=== PATIENT | female | born 1990 | race Caucasian/White ===

== ENCOUNTER → 2016-07-04 13:05 | Observation (INO) ==
[2016-07-04 11:42] LABS: Bilirubin,Urine Negative (Negative); Blood,Urine Negative (Negative); Clarity,Urine Cloudy (Clear); Color,Urine Yellow (Yellow); Glucose,Urine (UA) Normal (Normal); Ketones,Urine Negative (Negative); Leukocyte Esterase,Urine Trace (Negative); Nitrite,Urine Negative (Negative); PH,Urine 6.5 pH Units (5.0-8.0); Protein,Urine Negative (Neg-Trace); Specific Gravity,Urine 1.011 (1.010-1.025); Urobilinogen,Urine Normal (Normal)
[2016-07-04 11:43] LABS: Bacteria,Urine Few per hpf (None-Few); Hyaline Casts,Urine None Seen per lpf (None-Few); Squamous Epithelial Cell,Urine Many per lpf (None-Few)
--- NOTE | 2016-07-04 11:44 | OB/GYN Progress Note ---
Date of Encounter: 07/04/16 Time of Encounter: 11:42 - Assessment and Plan (1) 34 weeks gestation of Current Visit: Yes Status: Acute SVE closed. SSE negative for amniotic fluid. UA with trace leukocytes. Discharge home with precautions. Follow-up on Sunday as scheduled. (2) Abdominal pain affecting , antepartum Current Visit: Yes Status: Acute Subjective - Subjective Interval history: 25 year-old at 34w5d presenting with c/o leaking fluid at 0940 this am. She reports several small gushes of clear fluid. No sx vaginal infection or UTI. Good FM. No VB. She does admit to some mild cramping. Antepartum ROS: loss of fluid, movement normal, no vaginal bleeding, no contractions Objective - Exam FHR: category 1 FHR comments: NST reactive Auscultation: bilateral: normal Abdomen: Present: soft, gravid. Absent: tenderness Uterus: Absent: tenderness Cervical dilation: closed Cervix effacement: thick station: high Comments: SSE negative pool, negative nitrazine, negative fern.
[2016-07-04 11:57] LABS: RBC,Urine 0-3 per hpf (0-3)
[2016-07-04 14:18] LABS: Gardnerella DNA ***DETECTED*** (Not Detect); Trichomonas DNA Not Detected (Not Detect)
[2016-07-04 14:19] LABS: Candida DNA Not Detected (Not Detect)
== END | disposition home or self-care (01) ==
LOC: 1NENULAB
PROVIDERS: ADMIT Obstetrics & Gynecology; ATTEND Obstetrics & Gynecology

== ENCOUNTER 2016-08-03 14:16 | Inpatient (IN) ==
[2016-08-03] MEDS ORDERED: Famotidine 20 MG/2 ML VIAL IVP PRN (14:35)
[2016-08-03] MEDS ORDERED: Ondansetron 4 MG/2 ML VIAL IVP PRN ×2 (14:35→16:22)
[2016-08-03] MEDS ORDERED: Naloxone 0.4 MG/ML INJ IVP PRN ×2 (14:35→16:22)
[2016-08-03] MEDS ORDERED: miSOPROStol 25 MCG TABLET PO PRN (14:38)
[2016-08-03] MEDS ORDERED: *HR* Nalbuphine 20 MG/ML AMPUL IVP PRN (14:38)
[2016-08-03] MEDS ORDERED: Ringers Solution, Lactated 1,000 ML IVC SCH (14:45)
[2016-08-03 15:21] LABS: Basophils % 0.3 %; Eosinophils % 0.7 %; Hematocrit 33.7 % (35.3-44.9); Hemoglobin 11.6 g/dL (11.5-15.4); Immature Granulocytes % 0.3 % (0-4); Lymphocytes # 1.4 K/mcL (0.6-4.6); Mean Corpuscular HGB Conc 34.4 g/dL (31.6-35.5); Mean Corpuscular Hemoglobin 31.4 pg (28.0-33.3); Mean Corpuscular Volume 91.3 fL (83.0-100.0); Mean Platelet Volume 13.3 fL (9.4-12.4); Monocytes # 0.4 K/mcL (0.0-1.3); Monocytes % 5.7 %; Neutrophils # 4.3 K/mcL (1.6-8.9); Platelet Count 109 K/mcL (140-400); Red Blood Count 3.69 M/mcL (3.82-4.97); Red Cell Distribution Width 12.8 % (11.5-14.5)
--- NOTE | 2016-08-03 15:38 | OB/GYN History & Physical ---
Date of Encounter: 08/03/16 Time of Encounter: 15:35 Assessment and Plan (1) 39 weeks gestation of Current visit: Yes Status: Acute Admit for elective IOL. CYtotec 50mcg PO now. Tiwari catheter placed in cervix using sterile technique. Balloon inflated with 30ml sterile water. Pt tolerated well. Epidural when requested. AROM when able. Anticipate . History of Present Illness Chief complaint: IOL HPI: Ms. Cruz is a 25 year old female presenting at 39 weeks gestation for elective IOL. This has been uncomplicated. Good FM and no complaints today. A negative, antibody screen negative Rubella Immune Hep B negative RPR negative HIV negative Chicken pox as child GBS negative. Past Med Surg Social Fam HX - Past Medical History Medical history: no medical history Psychiatric history: no psych history - Past Surgical History Surgical History: no surgical history - Social History Smoking Status: Never smoker Alcohol use: none Drug use: none - Family History Father Adopted: [place]: Suresh Living Status: Still Living Hx Family Cardiac Disorders: No Hx Family Respiratory Disorders: No Hx Family Cancer: No Hx Family GI Disorders: No Hx Family Genitourinary Disorders: No Hx Family Endocrine Disorder: No Hx Family Musculoskeletal Disorders: No Hx Family Neuromuscular Disorders: No Hx Family Neurologic Disorders: No Hx Family HEENT Disorders: No Hx Family Autoimmune Disorders: No Hx Family Reproductive Disorders: No Hx Family Psychosocial Disorders: No Hx Family Medical Disorders: No Obstetrical History - Pregnancies : 3 Para: 1 Ab's: 1 Livin Medications and Allergies Caplet 1 tab PO DAILY 07/04/16 [History] Allergies No Known Allergies Allergy (Verified 07/04/16 11:44) Review of System OB All systems PM: reviewed and no additional remarkable complaints except as stated Exam - Constitutional Constitutional: well developed, well nourished, no acute distress - Lungs Respiratory exam: CTAB - Cardiovascular Cardiovascular exam: RRR, +S1, +S2 - Abdomen Abdomen: Present: gravid, non tender (EFW 8lbs by pia) - Extremities Extremities exam: normal inspection - Vulva Vulva: bilateral: normal - Vagina Vagina: Present: normal moisture - Cervix Dilation: 2 Effacement: 80 Station: -1 - Uterus Uterus exam: Present: normal size - Anus/Rectum Anus/Rectum: Present: normal perianal skin Results Result Diagrams: 08/03/16 15:00 Abnormal lab results RBC 3.69 M/mcL (3.82-4.97) L 08/03/16 15:00 Hct 33.7 % (35.3-44.9) L 08/03/16 15:00 Plt Count 109 K/mcL (140-400) L 08/03/16 15:00 MPV 13.3 fL (9.4-12.4) H 08/03/16 15:00 All other labs normal. - VTE Reasons for not Prescribing Prophylaxis: Treatment not Indicated - Low risk for VTE
[2016-08-03] MEDS ORDERED: *HR* FentaNYL (PF) 100 MCG/2 ML VIAL EP ONE (16:22)
[2016-08-03] MEDS ORDERED: Bupivacaine-MPF 0.25% 10 ML VIAL EP ONE (16:22)
[2016-08-03] MEDS ORDERED: EPHEDrine 50 MG/ML VIAL IVP PRN (16:22)
--- NOTE | 2016-08-03 16:26 | Anesthesia Evaluation PreOp ---
Date of Encounter: 08/03/16 Time of Encounter: 16:24 - Past History Planned Operation: SELENA/csection Cardiac History: Denies any Significant Hx Pulmonary History: Denies Any Significant HX WORM RAISER History: Denies Any Significant HX Other Medical History: GERD Anesthesia History: No Prior Anesthetic Complications, Past Anesthesia ( tonsillectomy) : Yes Alcohol Use: none Drug use: none Medications and Allergies Caplet 1 tab PO DAILY 07/04/16 [History] Allergies No Known Allergies Allergy (Verified 07/04/16 11:44) - Meds/Allergy Pre-op Review Medications Reviewed: Yes Allergies Reviewed: Yes Beta Blockers on Current Med List: No Anesthesia Results - Labs 08/03/16 15:00 Anesthesia Exam BP 113/56 P 118 R 16 T 98.6 Height: 5'1" Weight: 81.8kg NPO (# of Hours): 2 Pain Scale: 2 (with contractions) Pain Scale Used: Numeric (1 - 10) - HEENT Pupil (Motor): Pupils equal Mallampati: II Teeth: Normal Oral Opening: Greater than 3 - WORM RAISER LOC: Oriented WORM RAISER Motor: Normal RUE, Normal LUE, Normal RLE, Normal LLE, Normal Face WORM RAISER Sensory: Normal: RUE, LUE, RLE, LLE, Face - Cardiac Rhythm: Regular Murmur: None JVD: No Carotid Bruit: No - Pulmonary Breath Sounds: bilateral Clear Respiratory Effort: Symmetrical Anesthesia Assess/Plan ASA Score: 2 Modified Carmen Scale for Level of Consciousness: Cooperative, oriented, and tranquil Anesthetic Plan: Regional Autologous Blood: No Monitoring Plan: Standard Monitors Recovery Plan: Other
[2016-08-03] MEDS ORDERED: Epidural Premix (fent/bupiv) 110 ML EP SCH (16:30)
--- NOTE | 2016-08-03 16:43 | OB Labor Progress Note ---
Date of Encounter: 08/03/16 Time of Encounter: 16:41 Labor Progress Note - Subjective Subjective: Patient breathing with contractions. Discussed POC with patient. Patient denies any questions or concerns. - Cervix Cervix: 5/90/-1 - Heart Tones Heart Tones: 145 bpm moderate amount of variability +15x15 accels no decels noted. Cat 1 tracing. - [place]: 2-3 min apart - Interventions Interventions: SVE, AROM moderate amount of clear fluid noted. Pericare provided. - Plan Plan: Continue labor management. Patient may have Nubain and epidural for pain management if desires.
[2016-08-03] MEDS ORDERED: *HR* FentaNYL (PF) 100 MCG/2 ML VIAL ONE ×2 (16:52→21:33)
[2016-08-03] MEDS ORDERED: Bupivacaine-MPF 0.25% 10 ML VIAL ONE (16:52)
[2016-08-03] MEDS ORDERED: Epidural Premix (fent/bupiv) 110 ML EP ONE (16:53)
--- NOTE | 2016-08-03 18:27 | Anesthesia Procedures ---
Date of Encounter: 08/03/16 Time of Encounter: 17:26 Procedures: Anesthesia - Epidural/Spinal Patient ID/Chart reviewed: Yes Patient examined: Yes OB Eval: Gestational age: 39 OB Eval: : 2 OB Eval: Hx Para: 1 OB Eval: Dilated at (cm): 5 OB Eval: Contractions: Non-stressed pattern Consent Obtained: Yes Supplemental Oxygen: None/Room Air Site Prep: Aseptic Technique, Sterile prep and drape, Povidone-Iodine 1% Patient position: upright Local Anesthetic: Lidocaine 1% Amount of Local Anesthetic used: 3 Touhy Needle Gauge: 18 Touhy Needle Depth (cm): 6 Catheter Depth at Skin (cm): 15 Test Dose (1.5% Lido + Epi): Volume given (mls): 3 Test Dose Result: Negative Loading Dose: 0.25% Marcaine (mls): 10 Loading Dose: Fentanyl (mcg): 100 Loading Dose Administered: Thru Catheter Infusion Med: 0.125% Bupivacaine w/ 2 mcg/ml Fentanyl Infusion Rate (mls/hr): [address]: Tegaderm, Tape Interspace Used: L4-L5 Loss of Resistance (JOSÉ MIGUEL): Yes Blood: No CSF: No Paresthesia: No Procedure: SELENA placed in upright position 1st pass without any immediate noted complications. VSS and FHT stable throughout. Vitals + FHT's: 1726 BP 122/83 P 81 R16 1746 BP 125/70 R 16 P 117 FHT 130s
--- NOTE | 2016-08-03 19:16 | OB Labor Progress Note ---
Date of Encounter: 08/03/16 Time of Encounter: 19:14 Labor Progress Note - Subjective Subjective: Patient resting in bed with epidural in place. Patient denies any pain at this time. Discussed POC with patient. Patient denies any questions or concerns. - Cervix Cervix: 6.5/90/-1 - Heart Tones Heart Tones: 130 bpm moderate variability +15x15 accels no decels noted. Cat. 1 tracing. - [place]: 2-3 min apart - Interventions Interventions: SVE, IUPC placed without difficulty. Patient tolerated well. - Plan Plan: Continue labor management.
[2016-08-03] MEDS ORDERED: Oxytocin 20 units/ LR 1000 mL 20 UNIT/1,000 ML BAG IVC ONE ×3 (21:34→23:20)
--- NOTE | 2016-08-03 22:30 | OB/GYN Procedure Note ---
Delivery - Delivery Date: 08/03/16 Provider: [facility] Delivery induction: AROM, misoprostol Delivery monitor: external FHT, external uterine, internal uterine Anesthesia: local, epidural Estimated Blood Loss: 200 - Infant (s) Infant A Delivery Date: 08/03/16 Delivery Time: 21:58 Presentation: vertex Position: SANDY Gender: Female Viability: Viable Pounds: 8 Ounces: 4 Weight Gram: 3.745 kg at 1 minute: 7 at 5 mins: 9 Shoulder Dystocia: encountered Shoulder Dystocia Maneuvers: Juan Pablo maneuver, suprapubic pressure Shoulder dystocia time elapsed: 24 Specimens collected: cord blood Placenta: spontaneous, uterine exploration Cord: nuchal cord (x1), 3 umbilical vessels, nuchal reduced - Repair Episiotomy: none Laceration Description: Perineal - 1st Degree (repaired with 3-0 vicryl.) - Complications Delivery complications: none Delivery comments: Called to LDR, patient feeling pain after epidural bolus. Patient was dilated 10cm. Patient placed in stirrups and prepped for delivery. Patient began pushing with contractions delivery of head with nuchal x1 that was reduced. A Shoulder dystocia was encountered, Juan Pablo and suprapubic pressure was applied. Delivery of followed suprapubic pressure. Dystocia was approximately 24 seconds. was placed on Maternal abdomen cord was clamped and cut immediately. Infant was taken to the warm and began crying with stimulation. No other interventions were required. Placenta delivered however a piece of membrane remained and was manually removed. Patient had a 1st degree vaginal laceration. 1% lidocaine was used to anesthetize the laceration and was repaired with 3-0 vicryl. No meconium was encountered. was returned to mother for skin to skin. Both mother and infant are stable in recovery. - Disposition Mom disposition: stable in LDR Jal disposition: stable in LDR
--- NOTE | 2016-08-03 23:03 | Anesthesia Progress Note ---
Date of Encounter: 08/03/16 Time of Encounter: 21:40 Anesthesia Note - Note Note: 08/03/16 22:56 Called for increased patient discomfort with previously working epidural. Pt complains of pain in groin area. Level Check T6 level. Pt dilation checked to show complete dilation. Manual bolus given Sensorcaine 0.5% 8ml with Fentanyl 100mcg in hopes to increase patient comfort for delivery. VSS with bolus and subsequent delivery of baby girl. 08/03/16 23:04 Reason for Cancellation: Other
[2016-08-03] MEDS ORDERED: *HR* HYDROcodone/Acet 5/325 mg TABLET PO PRN (23:20)
[2016-08-03] MEDS ORDERED: Benzocaine/Menthol 56 GM AEROSOL SPRAY TP PRN (23:20)
[2016-08-03] MEDS ORDERED: Measles/Mumps/Rubella Vacc 0.5 ML VIAL SQ PRN (23:20)
[2016-08-03] MEDS ORDERED: Oxytocin 20 units/ LR 1000 mL 20 UNIT/1,000 ML BAG IV SCH (23:20)
[2016-08-03] MEDS ORDERED: Rho Immune Globulin 1,500 UNIT SYRINGE IM PRN (23:20)
[2016-08-03] MEDS ORDERED: Acetaminophen 325 MG TABLET PO PRN (23:20)
[2016-08-03] MEDS ORDERED: Lanolin 7 G OINT...G. TP PRN (23:20)
[2016-08-04 04:27] LABS: Basophils % 0.2 %
[2016-08-04 04:29] LABS: Eosinophils % 0.1 %; Hematocrit 31.5 % (35.3-44.9); Hemoglobin 10.8 g/dL (11.5-15.4); Immature Granulocytes % 0.6 % (0-4); Immature Platelets 18.3 % (1.1-6.1); Lymphocytes # 1.9 K/mcL (0.6-4.6); Lymphocytes % 16.5 %; Mean Corpuscular HGB Conc 34.3 g/dL (31.6-35.5); Mean Corpuscular Hemoglobin 31.7 pg (28.0-33.3); Mean Corpuscular Volume 92.4 fL (83.0-100.0); Mean Platelet Volume 13.6 fL (9.4-12.4); Monocytes # 0.6 K/mcL (0.0-1.3); Monocytes % 5.2 %; Neutrophils # 8.9 K/mcL (1.6-8.9); Platelet Count 93 K/mcL (140-400); Red Blood Count 3.41 M/mcL (3.82-4.97); Red Cell Distribution Width 12.8 % (11.5-14.5); Segmented Neutrophils % 77.4 %
[2016-08-04] MEDS: Ibuprofen 600 MG TABLET PO PRN ×3 (08:30→18:03)
[2016-08-04] MEDS ORDERED: Prenatal Vit/FA 1 EACH TABLET PO SCH (09:00)
--- NOTE | 2016-08-04 10:51 | OB/GYN Progress Note ---
Date of Encounter: 08/04/16 Time of Encounter: 10:47 - Assessment and Plan (1) 39 weeks gestation of Current Visit: Yes Status: Acute Admit for elective IOL. CYtotec 50mcg PO now. Tiwari catheter placed in cervix using sterile technique. Balloon inflated with 30ml sterile water. Pt tolerated well. Epidural when requested. AROM when able. Anticipate . Subjective - Subjective Patient reports: appetite normal, voiding normally, pain well controlled, ambulating normally Objective - Latest Vital Signs Latest vital signs: Vital Signs Temp Pulse Resp BP Pulse Ox 08/04/16 07:55 97 F L 71 16 99/66 97 08/04/16 02:35 98.1 F 73 14 108/66 97 Intake and Output 08/03/16 08/04/16 08/04/16 23:59 07:59 15:59 Intake Total 300 / 300 Output Total 1100 / 1100 500 / 500 Balance -800 / -800 -500 / -500 Intake: Oral 300 / 300 Output: Urine 1100 / 1100 500 / 500 Other: Stool Characteristics Normal for Patient Normal for Patient Weight 79 kg Patient Weight 08/04/16 23:59 Weight 79 kg - Labs Labs: Laboratory Results - last 24 hr 08/03/16 08/03/16 08/04/16 15:00 22:36 04:02 WBC 6.1 11.5 H D RBC 3.69 L 3.41 L Hgb 11.6 10.8 L Hct 33.7 L 31.5 L MCV 91.3 92.4 MCH 31.4 31.7 MCHC 34.4 34.3 RDW 12.8 12.8 Plt Count 109 L 93 L MPV 13.3 H 13.6 H Immature Gran % 0.3 0.6 Seg Neutrophils % 70.0 77.4 Lymphocytes % 23.0 16.5 Monocytes % 5.7 5.2 Eosinophils % 0.7 0.1 Basophils % 0.3 0.2 Neutrophils # 4.3 8.9 Lymphocytes # 1.4 1.9 Monocytes # 0.4 0.6 Eosinophils # 0.0 0.0 Basophils # 0.0 0.0 Immature Plt Fraction 18.3 H Baby's Blood Type O RH NEGATIVE Mother's Blood Type A RH NEGATIVE Rhogam Indicated NO
--- NOTE | 2016-08-04 10:54 | Discharge Summary ---
Date of Encounter: 08/04/16 Time of Encounter: 10:51 - Discharge Diagnosis (1) (normal spontaneous vaginal delivery) Priority: Primary Status: Acute Comments: Pt meeting milestones. (2) Encounter for care or examination of lactating mother Priority: Secondary Status: Acute - Discharge Medications Prescriptions: Ibuprofen [Motrin] 600 mg PO Q6HR PRN #60 tablet PRN Reason: Cramping Docusate [Colace] 100 mg PO BID #60 capsule Home Medications: Caplet 1 tab PO DAILY 07/04/16 [History] Benzocaine/Menthol [place] [Dermoplast [place]] 1 appl TP QID PRN #0 aerosol [Rx] Docusate [Colace] 100 mg PO BID #60 capsule 08/04/16 [Rx] Ibuprofen [Motrin] 600 mg PO Q6HR PRN #60 tablet 08/04/16 [Rx] Lanolin [Lansinoh] 1 appl TP TID PRN #0 oint...g. 08/04/16 [Rx] Allergies/Adverse Reactions: Allergies No Known Allergies Allergy (Verified 07/04/16 11:44) Data Procedures and tests throughout hospitalization: Laboratory Tests 08/03/16 08/03/16 08/04/16 15:00 22:36 04:02 WBC 6.1 11.5 H D RBC 3.69 L 3.41 L Hgb 11.6 10.8 L Hct 33.7 L 31.5 L MCV 91.3 92.4 MCH 31.4 31.7 MCHC 34.4 34.3 RDW 12.8 12.8 Plt Count 109 L 93 L MPV 13.3 H 13.6 H Immature Gran % 0.3 0.6 Seg Neutrophils % 70.0 77.4 Lymphocytes % 23.0 16.5 Monocytes % 5.7 5.2 Eosinophils % 0.7 0.1 Basophils % 0.3 0.2 Neutrophils # 4.3 8.9 Lymphocytes # 1.4 1.9 Monocytes # 0.4 0.6 Eosinophils # 0.0 0.0 Basophils # 0.0 0.0 Immature Plt Fraction 18.3 H Baby's Blood Type O RH NEGATIVE Mother's Blood Type A RH NEGATIVE Rhogam Indicated NO Labs on day of discharge: Labs from last 24 hours 08/04/16 08/03/16 08/03/16 04:02 22:36 15:00 WBC 11.5 H D 6.1 RBC 3.41 L 3.69 L Hgb 10.8 L 11.6 Hct 31.5 L 33.7 L MCV 92.4 91.3 MCH 31.7 31.4 MCHC 34.3 34.4 RDW 12.8 12.8 Plt Count 93 L 109 L MPV 13.6 H 13.3 H Immature Gran % 0.6 0.3 Seg Neutrophils % 77.4 70.0 Lymphocytes % 16.5 23.0 Monocytes % 5.2 5.7 Eosinophils % 0.1 0.7 Basophils % 0.2 0.3 Neutrophils # 8.9 4.3 Lymphocytes # 1.9 1.4 Monocytes # 0.6 0.4 Eosinophils # 0.0 0.0 Basophils # 0.0 0.0 Immature Plt Fraction 18.3 H Baby's Blood Type O RH NEGATIVE Mother's Blood Type A RH NEGATIVE Rhogam Indicated NO Date of admission: 08/03/16 14:16 Primary care physician: Mary Beth Sloan CNP Consults: 08/03/16 23:20 Consult to Radio Interference Investigator [CONS] Routine Comment: Vaginal delivery, consult needed Discharging clinician: Toma Noble Anticipated date of discharge: 08/04/16 - Patient Status Disposition: Home, Self-Care Condition: Good Functional capacity at discharge: independent ambulation Overall status at discharge: patient is progressing back to baseline - Discharge Instructions Follow Up With: Mary Beth Sloan CNP [Primary Care Provider] - [facility] CNM [Advanced Practice Nurse] - - Diet and Activity Activity: increase activity as tolerated Diet: advance to your usual diet Hospital Course Reason for admission: induction of labor Delivery: Episiotomy: none Laceration: 1st degree Other procedures: none complications: none Discharge diagnosis: IUP at term delivered baby: female Hospital course: - Delivery Date: 08/03/16 Provider: [facility] Delivery induction: AROM, misoprostol Delivery monitor: external FHT, external uterine, internal uterine Anesthesia: local, epidural Estimated Blood Loss: 200 - (s) A Delivery Date: 08/03/16 Delivery Time: 21:58 Presentation: vertex Position: SANDY Gender: Female Viability: Viable Pounds: 8 Ounces: 4 Weight Gram: 3.745 kg at 1 minute: 7 at 5 mins: 9 Shoulder Dystocia: encountered Shoulder Dystocia Maneuvers: Juan Pablo maneuver, suprapubic pressure Shoulder dystocia time elapsed: 24 Specimens collected: cord blood Placenta: spontaneous, uterine exploration Cord: nuchal cord (x1), 3 umbilical vessels, nuchal reduced - Repair Episiotomy: none Laceration Description: Perineal - 1st Degree (repaired with 3-0 vicryl.) - Complications Delivery complications: none - Disposition Mom disposition: home PPD#1 disposition: home with mother, Time Attestation: Total time spent providing and/or coordinating discharge services: Time Spent: Less than 30 minutes Exam - Constitutional Vitals: Temp Pulse Resp BP Pulse Ox 97 F L 71 16 99/66 97 08/04/16 07:55 08/04/16 07:55 08/04/16 07:55 08/04/16 07:55 08/04/16 07:55 General appearance IM: A&O X 3, pleasant, no acute distress - Respiratory Respiratory exam: Present: CTAB - Cardiovascular Cardiovascular exam IM: Present: RRR, +S1, +S2 - GI/Abdominal GI/Abdominal exam IM: soft - Rectal Rectal exam: deferred - Uterine Tone: Firm Uterus Position: At Umbilicus, Left of Midline - Extremities Exam Extremities exam IM: Present: normal inspection - Neurological Exam Neurological exam: normal gait, oriented X3 - Psychiatric Additional comments: reports good mood
[2016-08-04 21:44] VITALS: BP 108/71
== END 2016-08-04 23:30 | disposition home or self-care (01) | DRG 541 ==
LOC: 1NENULAB → OBSVTOIN 14:16 → 1NENUOBS 08-04 01:45